=== PATIENT | male | born 1965 | race Two or more races ===

== ENCOUNTER 2022-04-19 19:57 | Inpatient (IN) | payer MEDICAID ==
[~2022-04-19] VITALS: Ht 170.2 cm; Wt 96.6 kg
[~2022-04-19 19:57] MED LIST: ATOR40TA PO; CARV6.25 PO; GABA600T12 PO; LISI20TA30 PO; NIFE-35 PO; SEVE800T8 PO
--- NOTE | 2022-04-19 20:34 | NUR ---
[id number] FROM HOME C/O PER FAMILY LOW 02, PT TAKES 02 AT HOME WAS NOT ON I. PT HAS HX ESRD AND RECIEVED FULL DIALYSIS TREATMENT THIS AM WITTHOUT COMPLICATION. PT AWAKE AND ALERT X3 SATTING 98% ON 2LPM. PLACED ON PULSE OX AND VIDEO LIBRARY ASSISTANT V/S WNL.
--- NOTE | 2022-04-19 20:44 | NUR ---
DAUGHTER CARLOTTA [phone]
--- NOTE | 2022-04-19 21:33 | NUR ---
20G IV STARTED AT . BLOOD DRAWN AND SENT TO LAB
[2022-04-19 21:42] LABS: BASOPHILS # (AUTO) 0.1 K/uL (0.0-0.2); BASOPHILS % (AUTO) 0.7 % (0.0-2.0); EOSINOPHILS % (AUTO) 1.8 % (0.0-6.0); HEMATOCRIT 37 % (39-51); HEMOGLOBIN 11.9 g/dL (13.5-17.5); LYMPHOCYTES # (AUTO) 0.6 K/uL (0.8-4.8); LYMPHOCYTES % (AUTO) 8.5 % (20.0-44.0); MEAN CORPUSCULAR HGB CONC 32 g/dl (31.0-36.0); MEAN CORPUSCULAR VOLUME 88 fL (80-96); MONOCYTES # (AUTO) 0.4 K/uL (0.1-1.30); NEUTROPHILS # (AUTO) 5.9 K/uL (1.8-8.9); PLATELET COUNT (AUTO) 147 K/uL (150-450); RED BLOOD CELL COUNT(AUTO) 4.21 MIL/uL (4.5-6.0); WHITE BLOOD COUNT (AUTO) 7.1 K/uL (4.3-11.0)
[2022-04-19 22:05] LABS: ALANINE AMINOTRANSFERASE 29 U/L (12-78); ALBUMIN 3.6 g/dL (3.4-5.0); ALKALINE PHOSPHATASE 135 U/L (46-116); ASPARTATE AMINOTRANSFERASE 36 U/L (15-37); BILIRUBIN,DIRECT 0.2 mg/dL (0.0-0.2); BILIRUBIN,TOTAL 0.7 mg/dL (0.2-1.0); CALCIUM, SERUM 9.7 mg/dL (8.5-10.1); CARBON DIOXIDE 31 mmol/L (21-32); CHLORIDE 92 mmol/L (98-107); GLUCOSE 271 mg/dL (74-106); POTASSIUM 4.3 mmol/L (3.5-5.1); SODIUM SERUM 135 mmol/L (136-145)
--- NOTE | 2022-04-19 22:08 | NUR ---
CRITICAL LABS: BUN 95 CR 10 LACTIC [address] 2.[address] READ
[2022-04-19 22:09] LABS: UREA NITROGEN, BLOOD 95 mg/dL (7-18)
[2022-04-19] MEDS ORDERED: FUROSEMIDE 40 MG/4 ML VIAL ONE (22:14)
[2022-04-19] MEDS ORDERED: FUROSEMIDE 40 MG/4 ML VIAL IV ONE (22:30)
--- NOTE | 2022-04-19 22:37 | NUR ---
SADIE SENT TO LAB
--- NOTE | 2022-04-19 23:20 | NUR ---
EPIC PANEL PAGED
--- NOTE | 2022-04-20 00:50 | NUR ---
BED 312-1
[2022-04-20] MEDS ORDERED: ACETAMINOPHEN 325 MG TABLET PO PRN (03:00)
[2022-04-20] MEDS ORDERED: ONDANSETRON HCL/PF 4 MG/2 ML VIAL IVP PRN (03:00)
[2022-04-20] MEDS ORDERED: MAGNESIUM HYDROXIDE 30 ML UDC PO PRN (03:00)
--- NOTE | 2022-04-20 03:30 | NUR ---
REPORT GIVEN TO MONICA
--- NOTE | 2022-04-20 03:43 | NUR ---
PT TRANSPORTED TO ROOM 312-1 ON CARDIAC PER ACLS IN STABLE CONDITION
[2022-04-20 04:30] VITALS: BP 105/68
[2022-04-20 04:31] VITALS: BP 105/68
--- NOTE | 2022-04-20 04:34 | NUR ---
ADMISSION 56 y/o male Alert Oriented x4. Skin checked done, Right foot 5th toe s/p amputation as per patient 2 weeks ago. Left heel incision. Skin photos documented in the chart. Wing patient to room, unit, staff. Repositioned, made comfortable in bed.
[2022-04-20] MEDS ORDERED: METO25TA6 PO (05:18)
[2022-04-20] MEDS ORDERED: ATOR40TA PO (05:18)
[2022-04-20] MEDS ORDERED: GABA600T12 PO (05:18)
[2022-04-20] MEDS ORDERED: SILD20TA PO (05:18)
[2022-04-20] MEDS ORDERED: TICA90TA PO (05:18)
[2022-04-20] MEDS ORDERED: Auryxia PO (05:22)
--- NOTE | 2022-04-20 06:17 | NUR ---
END OF SHIFT REPORT Patient in bed, Alert Oriented x4. Oxygen sat high 90's on 2L NC. Observed SOB with exertion, improved with upright posture and up sitting. IV line Right hand intact. XI AV shunt no s/s of bleeding. Stoney foot incision, covered with dry gauze. Denies pain. Wound consult for treatment stoney foot incision. Patient on HD treatment, last dialysis yesterday 04/19/22. Will endorse to oncoming RN.
[2022-04-20 06:58] LABS: BASOPHILS % (AUTO) 0.8 % (0.0-2.0); EOSINOPHILS % (AUTO) 2.5 % (0.0-6.0); HEMATOCRIT 33 % (39-51); LYMPHOCYTES # (AUTO) 0.6 K/uL (0.8-4.8); LYMPHOCYTES % (AUTO) 10.9 % (20.0-44.0); MEAN CORPUSCULAR HGB CONC 33 g/dl (31.0-36.0); MEAN CORPUSCULAR VOLUME 87 fL (80-96); MONOCYTES # (AUTO) 0.4 K/uL (0.1-1.30); MONOCYTES % (AUTO) 7.5 % (2.0-12.0); NEUTROPHILS # (AUTO) 4.5 K/uL (1.8-8.9); NEUTROPHILS % (AUTO) 78.3 % (43.0-81.0); PLATELET COUNT (AUTO) 137 K/uL (150-450); WHITE BLOOD COUNT (AUTO) 5.8 K/uL (4.3-11.0)
[2022-04-20 07:00] VITALS: BP 109/65
[2022-04-20 07:15] LABS: CALCIUM, SERUM 9.3 mg/dL (8.5-10.1); POTASSIUM 4.6 mmol/L (3.5-5.1)
[2022-04-20 07:24] LABS: CREATININE 10.6 mg/dL (0.6-1.3)
--- NOTE | 2022-04-20 07:27 | NUR ---
RN OPENING NOTE RECEIVED PATIENT IN BED, AWAKE, A/O X4, VERBALLY RESPONSIVE. NO SIGNS OF ACUTE DISTRESS NOTED. ON O2 @ 2LPM VIA N/S, SPO2 @100%. NO SOB NOTED. BREATHING EVEN AND UNLABORED. ON WET PROCESS MILLER HEAD ASSISTANT, SHOWING SINUS RHYTHM, HR @ 79. DENIES ANY PAIN AT THIS TIME. NOTED WITH IV ACCESS ON RIGHT HAND #20G,INTACT AND PATENT, SALINE LOCKED. ALSO WITH LEFT UPPER ARM AV FISTULA. SAFETY MEASURE IN PLACE. BED IN LOWEST AND LOCKED POSITION. SIDE RAILS UP X2, CALL LIGHT PLACED WITHIN EASY REACH. WILL CONTINUE TO MONITOR PATIENT.
[2022-04-20] MEDS: HEPARIN SODIUM, PORCINE 5000 UNITS/1 ML VIAL SQ SCH ×2 (08:30→22:08)
--- NOTE | 2022-04-20 09:08 | NUR ---
WOUND CARE CONSULT: PT PRESENTS WITH FOOT DRESSINGS BILATERALLY WHICH ARE DRY AND INTACT. PT STATES HAD SURGERY RECENTLY BY DR MO. DR MO CALLED FOR DPM CONSULT. IN AGREEMENT WITH PLAN OF CARE.
[2022-04-20 12:00] VITALS: BP 106/75
[2022-04-20 16:00] VITALS: BP 105/70
[2022-04-20] MEDS ORDERED: INSU100V7 SQ ×2 (17:45)
[2022-04-20] MEDS ORDERED: DEXTROSE 50%-WATER 50 ML DISP.SYRIN IV PRN ×2 (18:30→19:00)
--- NOTE | 2022-04-20 18:46 | NUR ---
RN CLOSING NOTE PATIENT RESTING IN BED, EASILY AROUSED. A/O X4, VERBALLY RESPONSIVE. NO SIGNS OF ACUTE DISTRESS NOTED. REMAINS STABLE ON O2 @ 2LPM VIA N/C, SPO2 @100%. NO SOB NOTED. BREATHING EVEN AND UNLABORED. ON FISH GRADER, SHOWING SINUS RHYTHM, HR @ 80. IV ACCESS ON RIGHT HAND #20G, INTACT AND PATENT, SALINE LOCKED. ALSO WITH LEFT UPPER ARM AV FISTULA. S/P HD, 2 LITERS OF FLUIDS REMOVED. SAFETY MEASURE MAINTAINED. BED IN LOWEST AND LOCKED POSITION. SIDE RAILS UP X2, CALL LIGHT PLACED WITHIN EASY REACH. WILL ENDORSE TO NEXT SHIFT FOR PERLITA.
[2022-04-20] MEDS ORDERED: INSULIN REGULAR, HUMAN 100 UNIT/ML 3 ML VIAL SQ PRN (19:00)
[2022-04-20 20:00] VITALS: BP 126/78
[2022-04-20] MEDS ORDERED: INSULIN GLARGINE, 100 UNIT/ML CARTRIDGE SQ SCH (22:00)
[2022-04-20] MEDS ORDERED: BLOOD SUGAR DIAGNOSTIC 1 EACH STRIP IN SCH ×2 (22:00)
[2022-04-20] MEDS ORDERED: CHLORHEXIDINE GLUCONATE 4% 118 ML BOTTLE TP SCH (22:00)
[2022-04-20] MEDS: BLOOD SUGAR DIAGNOSTIC 1 EACH STRIP IN SCH (22:03)
[2022-04-20] MEDS: INSULIN REGULAR, HUMAN 100 UNIT/ML 3 ML VIAL SQ PRN (22:10)
[2022-04-21] VITALS: BP_SYST 106; BP_SYST 114; BP_DIAS 61; BP_DIAS 71
--- NOTE | 2022-04-21 00:54 | NUR ---
RN NOTE PATIENT RESTING IN BED, EASILY AROUSED. A/O X4, VERBALLY RESPONSIVE. NO SIGNS OF ACUTE DISTRESS NOTED. REMAINS STABLE ON O2 @ 2LPM VIA N/C, SPO2 @100%. NO SOB NOTED. BREATHING EVEN AND UNLABORED. ON PROTOCOL OFFICER, SHOWING SINUS RHYTHM, HR @ 80. IV ACCESS ON RIGHT HAND #20G, INTACT AND PATENT, SALINE LOCKED. ALSO WITH LEFT UPPER ARM AV FISTULA. S/P HD, 2 LITERS OF FLUIDS REMOVED. SAFETY MEASURE MAINTAINED. BED IN LOWEST AND LOCKED POSITION. SIDE RAILS UP X2, CALL LIGHT PLACED WITHIN EASY REACH. WOUND DRESSINGS CHANGED AT THIS TIME.
[2022-04-21 04:00] VITALS: BP 95/59
[2022-04-21] MEDS: BLOOD SUGAR DIAGNOSTIC 1 EACH STRIP IN SCH ×2 (06:32→12:46)
[2022-04-21] MEDS: INSULIN REGULAR, HUMAN 100 UNIT/ML 3 ML VIAL SQ PRN ×2 (06:32→12:50)
--- NOTE | 2022-04-21 06:38 | NUR ---
RN CLOSING NOTE PATIENT RESTING IN BED, EASILY AROUSED. A/O X4, VERBALLY RESPONSIVE. NO SIGNS OF ACUTE DISTRESS NOTED. REMAINS STABLE ON O2 @ 2LPM VIA N/C, SPO2 @100%. NO SOB NOTED. BREATHING EVEN AND UNLABORED. ON PHOTO LAB MANAGER, SHOWING SINUS RHYTHM, HR @ 70. IV ACCESS ON RIGHT HAND #20G, INTACT AND PATENT, SALINE LOCKED. ALSO WITH LEFT UPPER ARM AV FISTULA. S/P HD, 2 LITERS OF FLUIDS REMOVED. SAFETY MEASURE MAINTAINED. BED IN LOWEST AND LOCKED POSITION. SIDE RAILS UP X2, CALL LIGHT PLACED WITHIN EASY REACH. WILL ENDORSE CARE TO DAY SHIFT NURSE.
[2022-04-21 06:57] LABS: BASOPHILS # (AUTO) 0.1 K/uL (0.0-0.2); BASOPHILS % (AUTO) 0.9 % (0.0-2.0); EOSINOPHILS % (AUTO) 3.6 % (0.0-6.0); HEMATOCRIT 34 % (39-51); HEMOGLOBIN 10.9 g/dL (13.5-17.5); LYMPHOCYTES # (AUTO) 0.8 K/uL (0.8-4.8); MEAN CORPUSCULAR HGB CONC 32 g/dl (31.0-36.0); MEAN CORPUSCULAR VOLUME 88 fL (80-96); MONOCYTES # (AUTO) 0.4 K/uL (0.1-1.30); MONOCYTES % (AUTO) 7.3 % (2.0-12.0); NEUTROPHILS # (AUTO) 4.4 K/uL (1.8-8.9); NEUTROPHILS % (AUTO) 74.2 % (43.0-81.0); PLATELET COUNT (AUTO) 149 K/uL (150-450); RED BLOOD CELL COUNT(AUTO) 3.87 MIL/uL (4.5-6.0)
[2022-04-21 07:58] LABS: CALCIUM, SERUM 9.3 mg/dL (8.5-10.1); MAGNESIUM 2.9 mg/dL (1.8-2.4); POTASSIUM 4.5 mmol/L (3.5-5.1)
[2022-04-21 08:00] VITALS: BP 108/72
[2022-04-21] MEDS ORDERED: CHLORHEXIDINE GLUCONATE 4% 118 ML BOTTLE TP SCH (08:00)
--- NOTE | 2022-04-21 08:15 | NUR ---
RN OPENING NOTE PATIENT RECEIVED IN BED, AO X 4, ABLE TO RESPONDS ALL STIMULI. IN NO ACUTE DISTRESS NOTED. RESPIRATORY EVEN AND UNLABORED ON OXYGEN AT 2Ls VIA NC. SKIN IS WARM TO TOUCH, KEEP CLEAN/DRY. KEPT ELEVATED HOB FOR ENSURE AIRWAY AND ASPIRATION PRECAUTION, ALSO LOWEST POSITION OF THE BED, S/R UP X 3, BED ALARM IS ON AT ALL THE TIMES. ALL SAFETY PRECAUTION APPLIED. CALL LIGHT WITHIN REACH, WILL CONTINUE TO MONITOR.
[2022-04-21 08:27] LABS: CREATININE 10.1 mg/dL (0.6-1.3)
[2022-04-21 08:28] LABS: PHOSPHORUS 8.5 mg/dL (2.5-4.9)
[2022-04-21] MEDS ORDERED: POVIDONE-IODINE OINT 28.4 GM TUBE TP SCH (09:00)
[2022-04-21] MEDS ORDERED: METOPROLOL TARTRATE 50 MG TABLET PO SCH (09:00)
[2022-04-21] MEDS ORDERED: TICAGRELOR 90 MG TABLET PO SCH (09:00)
[2022-04-21] MEDS: SILDENAFIL CITRATE 20 MG TABLET PO SCH ×2 (09:10→14:23)
[2022-04-21] MEDS: GABAPENTIN 300 MG CAPSULE PO SCH ×2 (09:11→14:24)
[2022-04-21] MEDS: HEPARIN SODIUM, PORCINE 5000 UNITS/1 ML VIAL SQ SCH (09:12)
--- NOTE | 2022-04-21 09:12 | NUR ---
PATIENT SCHEDULED HD, WILL HOLD BP MEDICATIONS.
[2022-04-21] MEDS ORDERED: AURYXIA 210 MG PO SCH (13:00)
--- NOTE | 2022-04-21 15:55 | NUR ---
PATIENT D/C TO HOME AND GIVEN DISCHARGE INSTRUCTION INCLUDE FOLLOW UP PRIMARY CARE PROVIDER IN ONE WEEK AND WOUND CARE. PATIENT IN STABLE CONDITION. PATIENT LEFT FACILITY ESCORTED BY STAFF TO THE PRIVATE CAR. RETURNED ALL HOME MEDS, AND REMOVED IV LINE BEFORE PATIENT LEAVE. WOUND PICTURE TAKEN.
[2022-04-21 16:00] VITALS: BP_SYST 120; BP_SYST 146; BP_DIAS 62; BP_DIAS 80
[2022-04-21] MEDS ORDERED: ATORVASTATIN 40 MG TABLET PO SCH (22:00)
== END 2022-04-21 16:00 | disposition home or self-care (01) | DRG 194 ==
LOC: ER 20:04 → EDBD 20:04 → TELE 04-20 02:48 → MED 04-21 08:45
PROVIDERS: ADMIT Internal Medicine; ATTEND Internal Medicine
PROC: 5A1D70Z Performance of Urinary Filtration, Intermittent, Less than 6 Hours Per Day (ICD-10-PCS; principal; 2022-04-20)
DX: I13.2 Hypertensive heart and chronic kidney disease with heart failure and with stage 5 chronic kidney disease, or end stage renal disease (principal); E87.20 Acidosis, unspecified; N18.6 End stage renal disease; E11.22 Type 2 diabetes mellitus with diabetic chronic kidney disease; I05.2 Rheumatic mitral stenosis with insufficiency; L97.909 Non-pressure chronic ulcer of unspecified part of unspecified lower leg with unspecified severity; I50.9 Heart failure, unspecified; E78.5 Hyperlipidemia, unspecified; E11.51 Type 2 diabetes mellitus with diabetic peripheral angiopathy without gangrene; Z99.2 Dependence on renal dialysis; I50.33 Acute on chronic diastolic (congestive) heart failure; M89.8X9 Other specified disorders of bone, unspecified site; I25.10 Atherosclerotic heart disease of native coronary artery without angina pectoris; E11.621 Type 2 diabetes mellitus with foot ulcer
CPT/HCPCS: 36415; 71045-TC; 80048-TC; 80061-TC; 80076-TC; 82962-TC; 83605-TC; 83735-TC; 83880; 84100-TC; 84484-TC; 85025-TC; 85730-TC; 86706; 87040-TC; 87081-TC; 87340; 90935-TC; 93307-TC; A6253; A6403; A6407; C9803; G0378; J1644; J1815; J1940; J7030